=== PATIENT | female | born 1945 | race Caucasian/White ===

== ENCOUNTER 2019-10-23 12:12 | Emergency (ER) | payer OTHER, BC ==
[~2019-10-23] VITALS: Ht 160 cm; Wt 86.2 kg
[2019-10-23] MEDS ORDERED: COZAAR25 MG (12:50)
== END 2019-10-23 16:41 | disposition home or self-care (01) ==
LOC: ER 12:12
DX: L92.8 Other granulomatous disorders of the skin and subcutaneous tissue (principal); S80.12XS Contusion of left lower leg, sequela; X58.XXXS Exposure to other specified factors, sequela

== ENCOUNTER 2019-10-27 08:42 | Inpatient (IN) | payer OTHER, BC ==
[~2019-10-27] VITALS: Ht 160 cm; Wt 86.2 kg
[~2019-10-27 08:42] MED LIST: COZAAR25 MG
[2019-10-27] MEDS ORDERED: GLIPIZIDE XL5 MG (09:32)
[2019-10-27] MEDS ORDERED: LEVOTHYROXINE25 MCG (09:32)
[2019-10-27] MEDS ORDERED: LEVAQUIN500 MG (09:34)
== END 2019-11-03 16:51 | disposition home or self-care (01) | DRG 603 ==
LOC: ER 08:42 → MEDJ 17:52
PROVIDERS: ADMIT Internal Medicine
DX: L03.116 Cellulitis of left lower limb (principal); T81.49XA Infection following a procedure, other surgical site, initial encounter; N17.8 Other acute kidney failure; E11.628 Type 2 diabetes mellitus with other skin complications; E03.8 Other specified hypothyroidism; I12.9 Hypertensive chronic kidney disease with stage 1 through stage 4 chronic kidney disease, or unspecified chronic kidney disease; E11.22 Type 2 diabetes mellitus with diabetic chronic kidney disease; E11.65 Type 2 diabetes mellitus with hyperglycemia; N18.2 Chronic kidney disease, stage 2 (mild); B95.61 Methicillin susceptible Staphylococcus aureus infection as the cause of diseases classified elsewhere; Z79.4 Long term (current) use of insulin